=== PATIENT | female | born 1985 | race Caucasian/White ===

== ENCOUNTER 2022-07-03 17:16 | Emergency (ER) | payer OTHER, SELFPAY ==
--- NOTE | 2022-07-03 17:20 | ED.URI ---
HPI - URI/Sore Throat General Chief Complaint: Upper Respiratory Infection Stated Complaint: Sinus,Fever Time Seen by Provider: 07/03/22 18:35 Source: patient Mode of arrival: ambulatory Limitations: no limitations History of Present Illness HPI Narrative: Ms. Sheehan is a 36-year-old female patient presenting to clinic today with complaints of sinus congestion and fever x3 days. She reports she has had a lot of sinus congestion, postnasal drip, and fever. She reports that she has also has some body aches. She has not tested herself for COVID at home MD elicited complaint: fever, cough, nasal congestion and sinus pain Related Data Home Medications Medication Instructions Recorded Confirmed cholecalciferol (vitamin D3) 25 25 mcg PO DAILY 07/03/22 07/03/22 mcg (1,000 unit) tablet sertraline 100 mg tablet 100 mg DAILY 07/03/22 07/03/22 Allergies Allergy/AdvReac Type Severity Reaction Status Date / Time No Known Allergies Allergy Verified 07/03/22 18:47 Review of Systems Review of Systems: Pertinent positives per HPI. Patient denies any rash, headache, visual changes, dizziness, cough, shortness of breath, chest pain, palpitations, nausea, vomiting, diarrhea, constipation, abdominal pain, or any urinary issues. PMFSH Comments At the time of my signature, I reviewed and agree with the nursing past medical, surgical, social, and family history. There is no relevant family history pertinent to the patient complaint. Exam Narrative: General: Well-developed, well nourished, in no apparent distress Head: Normocephalic, atraumatic Eyes: Pupils equally round and reactive to light bilaterally, EOM intact, sclera and conjunctive clear, no discharge, lids normal Ears: TMs intact and clear, ear canals clear, no drainage, grossly hearing normal. Nose: Nares patent, no discharge, no inflammation, no sinus tenderness. Mouth: Oral pharynx without lesions or masses, good dentition, MMM. Neck: Supple, trachea midline, no enlargement of anterior or posterior cervical nodes, no thyroid masses or goiter palpable. Cardio: Regular rate and rhythm, s1 and s2 normal, no murmur appreciated. Resp: Clear to auscultation bilaterally, no rhonchi, rales, wheezing or rubs Course Course Emergency Course: Portions of this record may have been created with voice recognition software. Level of Care: Express Care Visit Vital Signs Vital signs: Vital Signs Temperature 37.7 C H 07/03/22 18:30 Pulse Rate 110 H 07/03/22 18:30 Respiratory Rate 18 07/03/22 18:30 Blood Pressure 143/89 H 07/03/22 18:30 Pulse Oximetry 99 07/03/22 18:30 Oxygen Delivery Room Air 07/03/22 18:30 Temperature 37.7 C H 07/03/22 18:30 Pulse Rate 110 H 07/03/22 18:30 Respiratory Rate 18 07/03/22 18:30 Blood Pressure 143/89 H 07/03/22 18:30 Pulse Oximetry 99 07/03/22 18:30 Oxygen Delivery Room Air 07/03/22 18:30 Vital signs reviewed MDM - URI/Sore Throat MDM Narrative Medical decision making narrative: At the time of the patient is resting comfortably on the exam table. influenza and COVID testing was completed in the clinic today I suspect patient has an upper respiratory infection/ viral syndrome. Supportive measures were discussed with the patient she voiced understanding of discharge instructions and agrees to treatment plan. Differential Diagnosis Differential diagnosis: Likely upper respiratory infection, otitis media, sinusitis, viral infection, bronchitis, influenza, pharyngitis and other ( COVID) Discharge Plan Discharge Clinical Impression: Viral infection, Post-nasal drip Upper respiratory infection Qualifiers: URI type: unspecified URI Qualified Code(s): J06.9 - Acute upper respiratory infection, unspecified Patient Disposition: Home, Self-Care Condition: Stable Instructions: Antibiotic Form, Upper Respiratory Infection (ED), Viral Syndrome (ED), Postnasal Drip (DC) Additional Instructions: Inf
[2022-07-03 18:30] VITALS: BP 143/89; PULSE 110; RESP 18; TEMP 37.7; O2SAT 99
== END 2022-07-03 19:08 | disposition home or self-care (01) ==
PROVIDERS: Emergency Provider Nurse Practitioner Family
DX: J06.9 Acute upper respiratory infection, unspecified (principal); R09.82 Postnasal drip; Z20.822 Contact with and (suspected) exposure to COVID-19
CPT/HCPCS: 87426; 87804; 99212; C9803; G0463